=== PATIENT | male | born 1995 | race African-American/Black ===

== ENCOUNTER 2022-09-06 10:23 | Emergency (ER) | payer OTHER ==
[2022-09-06 10:40] VITALS: BP 150/114
[2022-09-06] MEDS ORDERED: BACITRACIN ZINC OINT 1 PACKET TOP STA (11:34)
--- NOTE | 2022-09-06 12:09 | ED Physician Documentation ---
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 Tetanus is up-to-date. Review of Systems Constitutional: reports: Reviewed and negative Skin: reports: Laceration (s) PD PAST MEDICAL HISTORY - Allergies Allergies/Adverse Reactions: Allergies Allergy/AdvReac Type Severity Reaction Status Date / Time No Known Drug Allergies Allergy Verified 09/06/22 10:40 PD ED PE EXPANDED - Derm Derm: Laceration(s) (3 cm laceration base of the right thumb just above the thenar eminence. Superficial fatty subcutaneous exposed. Normal flexion extension. Neurovascular intact) Results - Vitals Vitals: Vital Signs - 24 hr 09/06/22 10:35 Temperature 36.3 C L Heart Rate 80 Respiratory 14 Rate Blood Pressure 150/114 H O2 Saturation 95 Oxygen O2 Source Room air Procedures - Laceration (location) right thumb Length in cm: 3 Wound type: Linear, Into subcut fat Neurovascular status: Sensory intact, Motor intact, Vascular intact Tendon involvement: Tendon intact Anesthesia: Lidocaine 1% Wound preparation: Hibiclens, Irrigated copiously NS Skin layer closure: Nylon, Interrupted, Size #-0 - enter number (4), Sutures - enter # (4) Other: Patient tolerated well, No complications, Neurovascular intact, Dressing applied, Tetanus UTD PD Medical Decision Making - ED course Complexity details: d/w patient ED course: 23-year-old male presents with a superficial laceration to the base of his right thumb. He is right-hand dominant. Wound was easily closed with 4 interrupted nylon sutures. Discussed usual routine wound care as well as emergent return precautions. Tetanus is up-to-date. Departure - Departure Disposition: 01 Home, Self Care Clinical Impression: Laceration of right thumb Qualifiers: Encounter type: initial encounter Damage to nail status: without damage Foreign body presence: without foreign body Qualified Code(s): S61.011A - Laceration without foreign body of right thumb without damage to nail, initial encounter Condition: Stable Record reviewed to determine appropriate education?: Yes Instructions: ED Laceration All Comments: Your suture(s) should be removed in 10 days. In 24 hours you may remove the dressing wash gently with warm soap and water, apply any antibiotic ointment and a simple bandage. Your tetanus is up-to-date. Please attempt to keep your wound clean and dry. Do not submerge it in dirty dishwater or bath water. Over the next week is going to be important to minimize the amount of movement of this thumb in order to allow the wound to heal properly. Return to the emergency department if you have any concerns of infection such as redness, fevers milky drainage increased pain.
== END 2022-09-06 12:13 | disposition home or self-care (01) ==
LOC: ED 10:23
DX: S61.011A Laceration without foreign body of right thumb without damage to nail, initial encounter (principal); W45.8XXA Other foreign body or object entering through skin, initial encounter; Y99.1 Military activity
CPT/HCPCS: 12002; 99282; A9270